=== PATIENT | male | born 1945 | race Two or more races ===

== ENCOUNTER 2019-01-18 23:37 | Inpatient (IN) | payer MEDICARE, MEDICAID ==
[~2019-01-18] VITALS: Ht 160 cm; Wt 59.0 kg
[2019-01-19] MEDS ORDERED: ASPIRIN 81MG TABLET PO ONE (00:15)
[2019-01-19] MEDS ORDERED: NITROGLYCERIN OINT 1GM/INCH UDPKT TD ONE (00:15)
[2019-01-19 00:47] LABS: BASOPHILS % 0.5 % (0.0-2.0); EOSINOPHILS % 1.6 % (0.0-5.0); HEMATOCRIT. 42.7 % (42.0-52.0); HEMOGLOBIN. 14.4 g/dL (14.0-18.0); MEAN CORPUSCULAR HEMOGLOBIN 28.3 pg (28.0-32.0); MEAN CORPUSCULAR VOLUME 83.8 fL (80.0-94.0); MEAN PLATELET VOLUME 8.9 fl (7.4-10.4); MONOCYTES % 9.2 % (2.0-8.0); NEUTROPHILS % 63.7 % (40.0-76.0); PLATELET 213 x1000/uL (130-400); RED BLOOD CELL COUNT 5.09 mill/uL (4.7-6.1); RED CELL DISTRIBUTION WIDTH 16.5 % (11.6-14.6)
[2019-01-19 00:53] LABS: CHLORIDE 110 mEq/L (98-107)
[2019-01-19 00:57] LABS: ETHANOL BLOOD < 10 mg/dL
[2019-01-19] MEDS ORDERED: LORAZEPAM 2MG/ML CPJ IV PRN (06:30)
[2019-01-19] MEDS ORDERED: MAGNESIUM/ALUMINUM HYDROXIDE/SIMETHICONE 30ML UDC PO PRN (06:30)
[2019-01-19] MEDS ORDERED: ONDANSETRON HCL 4MG/2ML INJ IV PRN (06:30)
[2019-01-19] MEDS ORDERED: MORPHINE SULFATE 2 MG/ML CPJ (NOT FOR IM USE) IV PRN (06:30)
[2019-01-19] MEDS ORDERED: GUAIFENESIN 200MG/10ML SUGAR FREE UDC PO PRN (06:30)
[2019-01-19] MEDS ORDERED: CLONIDINE 0.1MG TABLET PO PRN (06:30)
[2019-01-19] MEDS ORDERED: NA PHOS,M-B/NA PHOS,DI-BA ENEMA 118ML PR PRN (06:30)
[2019-01-19] MEDS ORDERED: DIPHENHYDRAMINE 50MG/ML VIAL IV PRN (06:30)
[2019-01-19] MEDS ORDERED: HYDRALAZINE 20MG/ML VIAL IV PRN (06:30)
[2019-01-19] MEDS ORDERED: ACETAMINOPHEN 325MG TABLET PO PRN (06:30)
[2019-01-19] MEDS ORDERED: DOCUSATE SODIUM 100MG CAPSULE PO PRN (06:30)
[2019-01-19] MEDS ORDERED: IPRATROPIUM/ALBUTEROL 0.5-3(2.5)MG/3ML NEB INH PRN (06:30)
[2019-01-19 07:23] LABS: BASOPHILS % 0.6 % (0.0-2.0); CHLORIDE 113 mEq/L (98-107); EOSINOPHILS % 2.6 % (0.0-5.0); HEMATOCRIT. 36.6 % (42.0-52.0); HEMOGLOBIN. 12.6 g/dL (14.0-18.0); MEAN CORPUSCULAR HEMOGLOBIN 28.7 pg (28.0-32.0); MEAN CORPUSCULAR VOLUME 83.2 fL (80.0-94.0); MEAN PLATELET VOLUME 8.3 fl (7.4-10.4); MONOCYTES % 10.2 % (2.0-8.0); NEUTROPHILS % 58.6 % (40.0-76.0); PLATELET 217 x1000/uL (130-400); RED CELL DISTRIBUTION WIDTH 16.4 % (11.6-14.6)
[2019-01-19 07:30] LABS: LDL CHOLESTEROL 49 mg/dL (5-100)
[2019-01-19 07:32] LABS: HDL CHOLESTEROL 56 mg/dL (40-59); T4 FREE 0.99 ng/dL (0.76-1.46)
[2019-01-19 08:00] VITALS: BP 121/60
[2019-01-19] MEDS: ASPIRIN 81MG EC TABLET PO SCH (09:47)
[2019-01-19] MEDS: ENOXAPARIN 40MG/0.4ML SYR SUBCUT SCH (09:48)
[2019-01-19 10:30] VITALS: BP 121/60
[2019-01-19 12:00] VITALS: BP 159/79
[2019-01-19] MEDS: HYDROCODONE/ACETAMINOPHEN 10/325MG TABLET PO PRN (13:12)
[2019-01-19 16:00] VITALS: BP 136/61
[2019-01-19 17:50] LABS: CREATINE KINASE 142 IU/L (39-308)
[2019-01-19 17:51] LABS: CREATINE KINASE MB FRACTION 1.4 ng/mL (0.5-3.6)
[2019-01-19 20:00] VITALS: BP 107/60
[2019-01-19] MEDS: SODIUM CHLORIDE 0.9% INJ 3ML FLUSH IVF SCH (21:50)
[2019-01-20] VITALS: BP 146/66
[2019-01-20 00:19] LABS: CREATINE KINASE 115 IU/L (39-308)
[2019-01-20 00:21] LABS: CREATINE KINASE MB FRACTION < 1.0 ng/mL (0.5-3.6)
[2019-01-20 04:00] VITALS: BP 157/76
[2019-01-20] MEDS: SODIUM CHLORIDE 0.9% INJ 3ML FLUSH IVF SCH ×4 (06:05→21:14)
[2019-01-20 08:00] VITALS: BP 127/64
[2019-01-20] MEDS: ASPIRIN 81MG EC TABLET PO SCH (08:48)
[2019-01-20] MEDS: ENOXAPARIN 40MG/0.4ML SYR SUBCUT SCH (08:48)
[2019-01-20 12:00] VITALS: BP 113/62
[2019-01-20 16:00] VITALS: BP 105/61
[2019-01-20 20:00] VITALS: BP 113/66
[2019-01-20] MEDS: HYDROCODONE/ACETAMINOPHEN 10/325MG TABLET PO PRN (21:07)
[2019-01-21] VITALS: BP 110/60
[2019-01-21 04:00] VITALS: BP 128/63
[2019-01-21] MEDS: SODIUM CHLORIDE 0.9% INJ 3ML FLUSH IVF SCH ×3 (06:48→21:31)
[2019-01-21] MEDS ORDERED: REGADENOSON 0.4 MG/5 ML IV ONE ×2 (07:15→09:17)
[2019-01-21 08:00] VITALS: BP 112/63
[2019-01-21] MEDS: ENOXAPARIN 40MG/0.4ML SYR SUBCUT SCH (10:41)
[2019-01-21] MEDS: ASPIRIN 81MG EC TABLET PO SCH (10:41)
[2019-01-21 12:00] VITALS: BP 130/68
[2019-01-21 16:00] VITALS: BP 119/61
[2019-01-21 20:00] VITALS: BP 126/67
[2019-01-22] VITALS: BP 122/65
[2019-01-22 04:00] VITALS: BP 131/63
[2019-01-22] MEDS: SODIUM CHLORIDE 0.9% INJ 3ML FLUSH IVF SCH ×2 (06:16→13:26)
[2019-01-22 08:00] VITALS: BP 132/63
[2019-01-22] MEDS: ASPIRIN 81MG EC TABLET PO SCH (08:28)
[2019-01-22] MEDS: ENOXAPARIN 40MG/0.4ML SYR SUBCUT SCH (08:29)
[2019-01-22 12:00] VITALS: BP 100/58
[2019-01-22 16:31] VITALS: BP 132/65
== END 2019-01-22 19:01 | DRG 203 ==
LOC: ER 23:37 → 5WST 01-19 04:19 → EDBEDREQTM 01-19 04:27 → EDBEDREQ 01-19 04:27 → ENRESERV 01-19 07:03
PROVIDERS: ADMIT Internal Medicine; ATTEND Internal Medicine
DX: M94.0 Chondrocostal junction syndrome [Tietze] (principal); E87.0 Hyperosmolality and hypernatremia; I69.351 Hemiplegia and hemiparesis following cerebral infarction affecting right dominant side; E78.5 Hyperlipidemia, unspecified; I10 Essential (primary) hypertension; Z87.891 Personal history of nicotine dependence; Z59.0 Homelessness
CPT/HCPCS: 36415; 71045; 78452; 80061; 80320; 82550; 82553; 82962; 83036; 83880; 84439; 84443; 84484; 85379; 93005; 93017; 93306; 93970; 97162; 97166; 97530; 97535; 99285; A9500; C1893; J1650; J2785; G0480